=== PATIENT | male | born 1935 | race Caucasian/White ===

== ENCOUNTER 2023-03-13 07:30 | Inpatient (IN) | payer MEDICARE, OTHER ==
[2023-03-13] MEDS ORDERED: Cyclobenzaprine 10 MG TAB PO PRN (14:43)
[2023-03-13] MEDS ORDERED: Bisacodyl 5 MG TAB PO PRN (14:46)
[2023-03-13] MEDS ORDERED: Ondansetron ODT 4 MG TAB PO PRN (14:46)
[2023-03-13] MEDS ORDERED: traMADol HCl 50 MG TAB PO PRN (14:48)
[2023-03-13] MEDS ORDERED: Benzonatate 100 MG CAP PO PRN (14:54)
[2023-03-13] MEDS ORDERED: Albuterol 2.5 MG (3 mL) NEB NEB PRN (14:54)
[2023-03-13] MEDS ORDERED: Melatonin 3 MG TAB PO SCH (15:00)
[2023-03-13 15:11] VITALS: BMI 33.0
[2023-03-13] MEDS: Lactulose 20 GM (30 mL) UDCUP PO SCH ×2 (16:09→20:35)
[2023-03-13] MEDS ORDERED: Dronedarone HCl 400 MG TAB PO SCH (17:00)
[2023-03-13] MEDS: Acetaminophen 500 MG TAB PO SCH ×2 (17:54→23:32)
[2023-03-13] MEDS: Terazosin HCl 5 MG CAP PO SCH (20:14)
[2023-03-13] MEDS: Pramipexole Di-HCl 0.25 MG TAB PO SCH (20:15)
[2023-03-13] MEDS: Melatonin 3 MG TAB PO SCH (20:15)
[2023-03-13] MEDS: Senokot S 8.6-50 MG TAB PO SCH (20:17)
[2023-03-13] MEDS: Amlodipine 5 MG TAB PO SCH (20:17)
[2023-03-13] MEDS: Apixaban 5 MG TAB PO SCH (20:18)
[2023-03-13] MEDS: Atorvastatin Calcium 40 MG TAB PO SCH (20:18)
[2023-03-13] MEDS: Metoprolol Tartrate 25 MG TAB PO SCH (20:18)
[2023-03-13] MEDS ORDERED: PRAMIPEXOLE DI HCL 1 MG PO SCH (21:00)
[2023-03-13] MEDS ORDERED: Haloperidol 5 MG TAB PO PRN (21:11)
[2023-03-13] MEDS ORDERED: QUEtiapine 25 MG TAB PO SCH (21:15)
[2023-03-14] MEDS: Senokot S 8.6-50 MG TAB PO SCH ×2 (08:35→21:17)
[2023-03-14] MEDS: Furosemide 20 MG TAB PO SCH (08:37)
[2023-03-14] MEDS: Pramipexole Di-HCl 0.25 MG TAB PO SCH ×2 (08:37→21:13)
[2023-03-14] MEDS: Apixaban 5 MG TAB PO SCH ×2 (08:37→21:16)
[2023-03-14] MEDS: Aspirin 81 mg Enteric Coated Tablet PO SCH (08:37)
[2023-03-14] MEDS: Acetaminophen 500 MG TAB PO SCH ×4 (08:38→21:16)
[2023-03-14] MEDS: Losartan 25 MG TAB PO SCH (08:39)
[2023-03-14] MEDS: Digoxin 0.125 MG TAB PO SCH (08:39)
[2023-03-14] MEDS: Lactulose 20 GM (30 mL) UDCUP PO SCH ×3 (08:39→21:18)
[2023-03-14] MEDS: Metoprolol Tartrate 25 MG TAB PO SCH ×2 (08:40→22:02)
[2023-03-14 09:21] LABS: ALT (SGPT) 49 U/L (8-55); AST (SGOT) 30 U/L (5-34); Albumin 2.9 g/dL (3.4-4.8); Alkaline Phosphatase 111 U/L (40-110); Anion Gap 11 mmol/L (10-20); BUN (Urea Nitrogen) 23 mg/dL (8.4-25.7); Bilirubin, Total 1.1 mg/dL (0.2-1.2); Calc. Creatinine Clearance 91 mL/min (70-130); Calcium 8.4 mg/dL (7.8-10.44); Carbon Dioxide 27 mmol/L (23-31); Chloride 105 mmol/L (98-107); Estimated GFR 86; Globulin 3.8 g/dL (2.4-3.5); Glucose 117 mg/dL (83-110); Potassium 4.5 mmol/L (3.5-5.1); Protein, Total 6.7 g/dL (5.8-8.1); Sodium 138 mmol/L (136-145)
[2023-03-14 09:22] LABS: #Basophils 0.1 thou/uL (0.0-0.2); #Eosinphils 0.1 thou/uL (0.0-0.7); #Lymphocytes 0.5 thou/uL (1.20-3.40); #Monocytes 0.5 thou/uL (0.11-0.59); #Neutrophils 6.9 thou/uL (1.40-6.50); %Basophils 0.8 % (0.0-1.0); %Eosinophils 0.8 % (0.0-10.0); %Lymphocytes 6.5 % (21.0-51.0); %Monocytes 6.8 % (0.0-10.0); %Neutrophils 85.3 % (42.0-75.0); Hematocrit 28.6 % (42.0-52.0); Hemoglobin 9.1 g/dL (14.0-18.0); Mean Corpuscular HGB CONC 31.7 g/dL (32.0-36.0); Mean Corpuscular Volume 97.7 fl (78.0-98.0); Mean Platelet Volume 6.3 fL (7.4-10.4); Platelet Count 329 10x3/uL (130-400); RBC Distribution Width 19.5 % (11.5-14.5); Red Blood Cell (RBC) Count 2.93 mill/uL (4.70-6.10); White Blood Cell (WBC) Count 8.1 10x3/uL (4.8-10.8)
[2023-03-14 11:55] LABS: Bilirubin Negative (Negative); Blood, Urine Moderate (Negative); Clarity Clear (Clear); Glucose, Urine (Dipstick) Negative (Negative); Ketone, Urine Negative (Negative); Leukocyte Small (Negative); Nitrite Negative (Negative); Protein, Urine (Dipstick) Trace mg/dL (Neg-Trace); Urobilinogen 0.2 mg/dL (Less than 2); pH, Urine 5.5 (5.0-9.0)
[2023-03-14 12:06] LABS: Squamous Epithelial 0-3 HPF (0-3)
[2023-03-14 12:07] LABS: Bacteria/HPF Rare-Few HPF (None Seen)
[2023-03-14] MEDS: Nystatin 500,000 UNITS/5 ML UDCUP SSW SCH ×2 (17:22→21:18)
[2023-03-14] MEDS: Terazosin HCl 5 MG CAP PO SCH (21:14)
[2023-03-14] MEDS: Amlodipine 5 MG TAB PO SCH (21:16)
[2023-03-14] MEDS: Melatonin 3 MG TAB PO SCH (21:16)
[2023-03-14] MEDS: Atorvastatin Calcium 40 MG TAB PO SCH (21:17)
[2023-03-14] MEDS: QUEtiapine 25 MG TAB PO SCH (22:02)
[2023-03-15] MEDS: Acetaminophen 500 MG TAB PO SCH ×4 (04:25→21:24)
[2023-03-15 06:22] LABS: Digoxin 1.18 ng/mL (0.8-2.0)
[2023-03-15] MEDS: Senokot S 8.6-50 MG TAB PO SCH ×2 (09:04→21:24)
[2023-03-15] MEDS: Pramipexole Di-HCl 0.25 MG TAB PO SCH ×2 (09:04→21:26)
[2023-03-15] MEDS: Losartan 25 MG TAB PO SCH (09:04)
[2023-03-15] MEDS: Furosemide 20 MG TAB PO SCH (09:05)
[2023-03-15] MEDS: Aspirin 81 mg Enteric Coated Tablet PO SCH (09:05)
[2023-03-15] MEDS: Apixaban 5 MG TAB PO SCH ×2 (09:05→21:27)
[2023-03-15] MEDS: Digoxin 0.125 MG TAB PO SCH (09:05)
[2023-03-15] MEDS: Lactulose 20 GM (30 mL) UDCUP PO SCH ×3 (09:06→21:23)
[2023-03-15] MEDS: Nystatin 500,000 UNITS/5 ML UDCUP SSW SCH ×4 (09:06→21:23)
[2023-03-15] MEDS: Metoprolol Tartrate 25 MG TAB PO SCH ×2 (09:06→21:27)
[2023-03-15] MEDS: Melatonin 3 MG TAB PO SCH (21:23)
[2023-03-15] MEDS: Terazosin HCl 5 MG CAP PO SCH (21:24)
[2023-03-15] MEDS: guaiFENesin ER 600 MG TAB PO SCH (21:24)
[2023-03-15] MEDS: Atorvastatin Calcium 40 MG TAB PO SCH (21:26)
[2023-03-15] MEDS: Amlodipine 5 MG TAB PO SCH (21:26)
[2023-03-15] MEDS: QUEtiapine 25 MG TAB PO SCH (21:27)
[2023-03-16] MEDS: Acetaminophen 500 MG TAB PO SCH ×5 (03:26→22:00)
[2023-03-16 05:14] LABS: Critical Call w/ Read Back 11; Hemoglobin 8.9 g/dL (14.0-18.0); Manual Diff?? NO; Mean Corpuscular HGB CONC 30.6 g/dL (32.0-36.0); Mean Corpuscular Hemoglobin 30.4 pg (27.0-31.0); Mean Corpuscular Volume 99.2 fl (78.0-98.0); Mean Platelet Volume 6.1 fL (7.4-10.4); Platelet Count 332 10x3/uL (130-400); RBC Distribution Width 19.1 % (11.5-14.5); Red Blood Cell (RBC) Count 2.93 mill/uL (4.70-6.10); White Blood Cell (WBC) Count 8.9 10x3/uL (4.8-10.8)
[2023-03-16 05:15] LABS: #Basophils 0.1 thou/uL (0.0-0.2); #Eosinphils 0.2 thou/uL (0.0-0.7); #Lymphocytes 0.5 thou/uL (1.20-3.40); #Monocytes 0.7 thou/uL (0.11-0.59); #Neutrophils 9.4 thou/uL (1.40-6.50); %Basophils 1.3 % (0.0-1.0); %Eosinophils 1.9 % (0.0-10.0); %Lymphocytes 4.9 % (21.0-51.0); %Monocytes 6.4 % (0.0-10.0); %Neutrophils 85.6 % (42.0-75.0)
[2023-03-16 05:26] LABS: Anion Gap 12 mmol/L (10-20); BUN (Urea Nitrogen) 22 mg/dL (8.4-25.7); Calc. Creatinine Clearance 84 mL/min (70-130); Calcium 8.3 mg/dL (7.8-10.44); Carbon Dioxide 27 mmol/L (23-31); Chloride 104 mmol/L (98-107); Estimated GFR 84; Glucose 108 mg/dL (83-110); Potassium 4.2 mmol/L (3.5-5.1); Sodium 139 mmol/L (136-145)
[2023-03-16] MEDS: Apixaban 5 MG TAB PO SCH ×2 (10:13→20:30)
[2023-03-16] MEDS: guaiFENesin ER 600 MG TAB PO SCH ×2 (10:13→20:31)
[2023-03-16] MEDS: Nystatin 500,000 UNITS/5 ML UDCUP SSW SCH ×4 (10:13→20:34)
[2023-03-16] MEDS: Lactulose 20 GM (30 mL) UDCUP PO SCH ×3 (10:13→20:30)
[2023-03-16] MEDS: Aspirin 81 mg Enteric Coated Tablet PO SCH (10:13)
[2023-03-16] MEDS: Metoprolol Tartrate 25 MG TAB PO SCH ×2 (10:14→20:30)
[2023-03-16] MEDS: Furosemide 20 MG TAB PO SCH (10:14)
[2023-03-16] MEDS: Losartan 25 MG TAB PO SCH (10:15)
[2023-03-16] MEDS: Senokot S 8.6-50 MG TAB PO SCH ×2 (10:15→20:30)
[2023-03-16] MEDS: Digoxin 0.125 MG TAB PO SCH (10:15)
[2023-03-16] MEDS: Pramipexole Di-HCl 0.25 MG TAB PO SCH ×2 (10:15→20:31)
[2023-03-16] MEDS ORDERED: Doxycycline 100 MG CAP PO SCH ×2 (11:15→21:00)
[2023-03-16 13:01] LABS: Bilirubin Small (Negative); Blood, Urine Large (Negative); Clarity Turbid (Clear); Glucose, Urine (Dipstick) Negative (Negative); Ketone, Urine Negative (Negative); Leukocyte Small (Negative); Nitrite Negative (Negative); Protein, Urine (Dipstick) 100 mg/dL (Neg-Trace); Specific Gravity, Urine 1.025 (1.005-1.030)
[2023-03-16 13:02] LABS: Bacteria/HPF 2+ HPF (None Seen); CAUTI Indications for Culture Alt mental st,lethar; RBC/HPF Greater than 50 HPF (0-3); Squamous Epithelial 0-3 HPF (0-3); Transitional Epithelial 0-3 HPF (None Seen); WBC/HPF Greater Than 50 HPF (0-3)
[2023-03-16 13:03] LABS: Urine Culture Reflex Yes Yes
[2023-03-16] MEDS ORDERED: cefTRIAXone\\ROCEPHIN 1 GM in Sodium Chloride 0.9% 100 ML IVPB SCH (13:30)
[2023-03-16] MEDS ORDERED: Sodium Chloride 0.9% 500 ML IV SCH (13:45)
[2023-03-16] MEDS: Terazosin HCl 5 MG CAP PO SCH (20:30)
[2023-03-16] MEDS: Atorvastatin Calcium 40 MG TAB PO SCH (20:30)
[2023-03-16] MEDS: Amlodipine 5 MG TAB PO SCH (20:31)
[2023-03-16] MEDS: QUEtiapine 25 MG TAB PO SCH (20:31)
[2023-03-16] MEDS: Melatonin 3 MG TAB PO SCH (20:31)
[2023-03-17 06:04] LABS: #Basophils 0.1 thou/uL (0.0-0.2); #Eosinphils 0.2 thou/uL (0.0-0.7); #Lymphocytes 1.5 thou/uL (1.20-3.40); #Monocytes 0.6 thou/uL (0.11-0.59); #Neutrophils 4.4 thou/uL (1.40-6.50); %Basophils 1.1 % (0.0-1.0); %Eosinophils 2.7 % (0.0-10.0); %Lymphocytes 21.8 % (21.0-51.0); %Monocytes 9.5 % (0.0-10.0); %Neutrophils 64.9 % (42.0-75.0); Hematocrit 38.5 % (42.0-52.0); Hemoglobin 12.2 g/dL (14.0-18.0); Mean Corpuscular HGB CONC 31.8 g/dL (32.0-36.0); Mean Corpuscular Hemoglobin 26.5 pg (27.0-31.0); Mean Corpuscular Volume 83.4 fl (78.0-98.0); Mean Platelet Volume 8.9 fL (7.4-10.4); Platelet Count 273 10x3/uL (130-400); RBC Distribution Width 15.1 % (11.5-14.5); Red Blood Cell (RBC) Count 4.62 mill/uL (4.70-6.10); White Blood Cell (WBC) Count 6.7 10x3/uL (4.8-10.8)
[2023-03-17 06:14] LABS: Anion Gap 13 mmol/L (10-20)
[2023-03-17 06:15] LABS: Digoxin Less than 0.15 ng/mL (0.8-2.0)
[2023-03-17 06:26] LABS: Sodium 137 mmol/L (136-145)
[2023-03-17 06:27] LABS: BUN (Urea Nitrogen) 18 mg/dL (8.4-25.7); Calc. Creatinine Clearance 87 mL/min (70-130); Calcium 10.1 mg/dL (7.6-10.4); Carbon Dioxide 26 mmol/L (23-31); Chloride 102 mmol/L (98-107); Estimated GFR 85; Glucose 116 mg/dL (83-110); Potassium 3.8 mmol/L (3.5-5.1)
[2023-03-17] MEDS: Lactulose 20 GM (30 mL) UDCUP PO SCH ×3 (09:52→20:38)
[2023-03-17] MEDS: Nystatin 500,000 UNITS/5 ML UDCUP SSW SCH ×4 (09:52→20:38)
[2023-03-17] MEDS: Pramipexole Di-HCl 0.25 MG TAB PO SCH ×2 (09:52→20:35)
[2023-03-17] MEDS: guaiFENesin ER 600 MG TAB PO SCH ×2 (09:52→20:36)
[2023-03-17] MEDS: Digoxin 0.125 MG TAB PO SCH (09:53)
[2023-03-17] MEDS: Losartan 25 MG TAB PO SCH (09:53)
[2023-03-17] MEDS: Furosemide 20 MG TAB PO SCH (09:54)
[2023-03-17] MEDS: Sulfameth/Trimethoprim DS 800-160mg TAB PO SCH ×2 (09:54→20:38)
[2023-03-17] MEDS: Aspirin 81 mg Enteric Coated Tablet PO SCH (09:54)
[2023-03-17] MEDS: Metoprolol Tartrate 25 MG TAB PO SCH ×2 (09:54→20:37)
[2023-03-17] MEDS: Acetaminophen 500 MG TAB PO SCH ×3 (09:54→20:32)
[2023-03-17] MEDS: Apixaban 5 MG TAB PO SCH ×2 (09:54→20:37)
[2023-03-17] MEDS: Senokot S 8.6-50 MG TAB PO SCH ×2 (09:55→20:39)
[2023-03-17] MEDS ORDERED: Sodium Chloride 0.9% 500 ML IV SCH (10:00)
[2023-03-17] MEDS: Terazosin HCl 5 MG CAP PO SCH (20:35)
[2023-03-17] MEDS: Amlodipine 5 MG TAB PO SCH (20:36)
[2023-03-17] MEDS: Atorvastatin Calcium 40 MG TAB PO SCH (20:37)
[2023-03-17] MEDS: QUEtiapine 25 MG TAB PO SCH (20:37)
[2023-03-17] MEDS: Melatonin 3 MG TAB PO SCH (20:38)
[2023-03-18] MEDS: Acetaminophen 500 MG TAB PO SCH ×4 (04:08→21:03)
[2023-03-18] MEDS: guaiFENesin ER 600 MG TAB PO SCH ×2 (09:03→21:02)
[2023-03-18] MEDS: Sulfameth/Trimethoprim DS 800-160mg TAB PO SCH ×2 (09:04→21:02)
[2023-03-18] MEDS: Senokot S 8.6-50 MG TAB PO SCH ×2 (09:05→21:03)
[2023-03-18] MEDS: Digoxin 0.125 MG TAB PO SCH (09:05)
[2023-03-18] MEDS: Furosemide 20 MG TAB PO SCH (09:06)
[2023-03-18] MEDS: Losartan 25 MG TAB PO SCH (09:07)
[2023-03-18] MEDS: Aspirin 81 mg Enteric Coated Tablet PO SCH (09:07)
[2023-03-18] MEDS: Metoprolol Tartrate 25 MG TAB PO SCH (09:07)
[2023-03-18] MEDS: Apixaban 5 MG TAB PO SCH (09:08)
[2023-03-18] MEDS: Nystatin 500,000 UNITS/5 ML UDCUP SSW SCH ×4 (09:10→21:04)
[2023-03-18] MEDS: Pramipexole Di-HCl 0.25 MG TAB PO SCH (09:16)
[2023-03-18] MEDS: Lactulose 20 GM (30 mL) UDCUP PO SCH (09:40)
[2023-03-18] MEDS ORDERED: QUEtiapine 25 MG TAB PO SCH (17:30)
[2023-03-18] MEDS: Melatonin 3 MG TAB PO SCH (21:01)
[2023-03-18] MEDS: Pramipexole Di-HCl 0.25 MG TAB PO PRN (21:02)
[2023-03-18] MEDS: Terazosin HCl 5 MG CAP PO SCH (21:02)
[2023-03-18] MEDS: Atorvastatin Calcium 40 MG TAB PO SCH (21:03)
[2023-03-18] MEDS: Amlodipine 5 MG TAB PO SCH (21:04)
[2023-03-19] MEDS: Acetaminophen 500 MG TAB PO SCH ×4 (04:30→21:04)
[2023-03-19] MEDS: guaiFENesin ER 600 MG TAB PO SCH ×2 (08:31→21:05)
[2023-03-19] MEDS: Losartan 25 MG TAB PO SCH (08:32)
[2023-03-19 08:34] LABS: #Basophils 0.1 thou/uL (0.0-0.2); #Eosinphils 0.1 thou/uL (0.0-0.7); #Lymphocytes 0.4 thou/uL (1.20-3.40); #Monocytes 0.4 thou/uL (0.11-0.59); #Neutrophils 5.5 thou/uL (1.40-6.50); %Eosinophils 1.1 % (0.0-10.0); %Monocytes 6.7 % (0.0-10.0); %Neutrophils 85.4 % (42.0-75.0); Hematocrit 28.7 % (42.0-52.0); Hemoglobin 8.7 g/dL (14.0-18.0); Mean Corpuscular HGB CONC 30.2 g/dL (32.0-36.0); Mean Corpuscular Hemoglobin 29.9 pg (27.0-31.0); Mean Corpuscular Volume 98.9 fl (78.0-98.0); Platelet Count 300 10x3/uL (130-400); RBC Distribution Width 18.9 % (11.5-14.5); White Blood Cell (WBC) Count 6.4 10x3/uL (4.8-10.8)
[2023-03-19] MEDS: Aspirin 81 mg Enteric Coated Tablet PO SCH (08:34)
[2023-03-19] MEDS: Sulfameth/Trimethoprim DS 800-160mg TAB PO SCH ×2 (08:34→21:03)
[2023-03-19] MEDS: Furosemide 20 MG TAB PO SCH (08:35)
[2023-03-19] MEDS: Senokot S 8.6-50 MG TAB PO SCH ×2 (08:36→21:04)
[2023-03-19] MEDS: Digoxin 0.125 MG TAB PO SCH (08:38)
[2023-03-19 08:42] LABS: Anion Gap 11 mmol/L (10-20); BUN (Urea Nitrogen) 30 mg/dL (8.4-25.7); Calc. Creatinine Clearance 62 mL/min (70-130); Carbon Dioxide 26 mmol/L (23-31); Chloride 104 mmol/L (98-107); Estimated GFR 62; Glucose 104 mg/dL (83-110); Potassium 4.5 mmol/L (3.5-5.1); Sodium 136 mmol/L (136-145)
[2023-03-19 08:43] LABS: Digoxin 0.89 ng/mL (0.8-2.0)
[2023-03-19] MEDS: Nystatin 500,000 UNITS/5 ML UDCUP SSW SCH ×4 (08:46→21:03)
[2023-03-19] MEDS ORDERED: Nebivolol HCl 2.5 MG TAB PO SCH (09:00)
[2023-03-19] MEDS ORDERED: Apixaban 5 MG TAB PO SCH (09:00)
[2023-03-19 19:47] VITALS: BP 118/57; TEMP 97.6
[2023-03-19] MEDS ORDERED: QUEtiapine 25 MG TAB PO SCH (20:00)
[2023-03-19] MEDS: Melatonin 3 MG TAB PO SCH (21:04)
[2023-03-19] MEDS: Terazosin HCl 5 MG CAP PO SCH (21:05)
[2023-03-19] MEDS: Atorvastatin Calcium 40 MG TAB PO SCH (21:05)
[2023-03-19] MEDS: Amlodipine 5 MG TAB PO SCH (21:05)
[2023-03-19] MEDS: Pramipexole Di-HCl 0.25 MG TAB PO PRN (21:06)
[2023-03-20] MEDS: Acetaminophen 500 MG TAB PO SCH (02:59)
[2023-03-20] MEDS ORDERED: EPINEPHrine 1 MG/10 ML Abboject SYRINGE ONE (06:18)
[2023-03-20] MEDS ORDERED: Sodium Bicarb 50 MEQ/50 ML Abboject 8.4% SYRINGE ONE (06:18)
== END 2023-03-20 09:41 | disposition expired | DRG 948 ==
LOC: NAV ACUTE 14:05
PROVIDERS: ADMIT Family Medicine; ATTEND Family Medicine
DX: R53.1 Weakness (principal); I25.10 Atherosclerotic heart disease of native coronary artery without angina pectoris; I35.0 Nonrheumatic aortic (valve) stenosis; I48.91 Unspecified atrial fibrillation; R33.9 Retention of urine, unspecified
CPT/HCPCS: 36415; 80048; 80053; 80162; 81001; 82550; 85025; 87077; 87086; 87186; J0171; J0696; J3490; J7030